=== PATIENT | male | born 1955 | race Caucasian/White ===

== ENCOUNTER 2017-10-01 21:00 | Inpatient (IN) | payer BC ==
[2017-10-01 21:58] LABS: ABSOLUTE BASOPHILS # (AUTO) 0.1 10^3/uL (0.0-0.2); ABSOLUTE EOSINOPHILS # (AUTO) 0.1 10^3/uL (0.0-0.6); ABSOLUTE LYMPHOCYTES (AUTO) 2.4 10^3/uL (0.5-4.7); ABSOLUTE MONOCYTES (AUTO) 0.6 10^3/uL (0.1-1.4); ABSOLUTE NEUT (AUTO) 3.8 10^3/uL (1.7-8.2); BASOPHILS % (AUTO) 1.2 % (0-2); EOSINOPHILS % (AUTO) 1.9 % (0-6); HEMATOCRIT 40.4 % (37.9-51.0); LYMPHOCYTES % (AUTO) 34.1 % (13-45); MEAN CORPUSCULAR HEMOGLOBIN 34.9 pg (27.0-33.4); MEAN CORPUSCULAR HGB CONC 34.6 g/dL (32.0-36.0); MEAN CORPUSCULAR VOLUME 101 fl (80-97); MONOCYTES % (AUTO) 8.5 % (3-13); PLATELET COUNT 201 10^3/uL (150-450); RED CELL DISTRIBUTION WIDTH 13.8 % (11.5-14.0); SEGMENTED NEUTROPHILS % (AUTO) 54.3 % (42-78); TOTAL CELLS COUNTED % (AUTO) 100 %
--- NOTE | 2017-10-01 21:59 | ER Document Report ---
ED General - General Chief Complaint: Chest Pain Stated Complaint: CHEST PAIN Time Seen by Provider: 10/01/17 21:58 Notes: Patient is 61-year-old male who presents with complaint of chest pain. Chest pain is substernal does radiate some to the back. This started around 7:30 PM. Patient then started to have panic attacks become very anxious. He then started to act confused. Family says is under several times in the past when he starts panicking or confused. does admit that he had just 2 drinks today. She says she that he drinks sometimes. No recent fevers or infections. He does have a history of coronary disease. Does have previous history of stent. No vomiting. No diarrhea. No other complaints at this time. He does have previous history of strokes as well. No lasting neurologic deficits from his previous strokes. TRAVEL OUTSIDE OF THE [place] IN LAST 30 DAYS: No - Related Data Allergies/Adverse Reactions: No Known Allergies Allergy (Unverified 09/17/12 00:21) Past Medical History - Social History Smoking Status: Smoker,Current Status Unk Chew tobacco use (# tins/day): No Frequency of alcohol use: Social Drug Abuse: None Family History: Reviewed & Not Pertinent Patient has suicidal ideation: No Patient has homicidal ideation: No - Past Medical History Cardiac Medical History: Reports: Hx Congestive Heart Failure, Hx Coronary Artery Disease, Hx Heart Attack, Hx Hypercholesterolemia, Hx Hypertension Neurological Medical History: Reports: Hx Cerebrovascular Accident Renal/ Medical History: Reports: Hx Kidney Stones. Denies: Hx Peritoneal Dialysis Musculoskeltal Medical History: Reports Hx Fibromyalgia Past Surgical History: Reports: Hx Cardiac Catheterization - stents placed, Hx Cholecystectomy - Immunizations Hx Diphtheria, Pertussis, Tetanus Vaccination: No Review of Systems - Review of Systems -: Yes ROS unobtainable due to patient's medical condition - Review of systems limited because patient is altered. Physical Exam - Vital signs Vitals: Temp Resp Pulse Ox 98.7 F 16 99 10/01/17 21:12 10/01/17 21:12 10/01/17 21:12 - Notes Notes: General Appearance: Patient initially is staring off and base but still somewhat interactive with family. Patient then starts answering questions but does not give appropriate answers to questions. Patient initially would not move his extremities but then the middle exam starts moving all 4 extremities spontaneously and grabbing at his blanket and pulling it up. Vitals: reviewed, See vital signs table. Head: no swelling or tenderness to the head Eyes: PERRL, EOMI, Conjuctiva clear Mouth: No decreasd moisture Throat: No tonsillar inflammation, No airway obstruction, No lymphadenopathy Neck: Supple, no neck tenderness, No thyromegaly Lungs: No wheezing, No rales, No rhonci, No accessory muscle use, good air exchange bilaterally. Heart: Normal rate, Regular rythm, No murmur, no rub Abdomen: Normal BS, soft, No rigidity, No abdominal tenderness, No guarding, no rebound, no abdominal masses, no organomegaly Extremities: strength 5/5 in all extremities, good pulses in all extremities, no swelling or tenderness in the extremities, no edema. Skin: warm, dry, appropriate color, no rash Neuro: Patient is able move all 4 extremities on his own. It is hard to individually test strength as patient does not follow commands well. Patient's cranial nerves II through XII are intact except for speech is just slightly garbled. He has symmetric facial movements. Did not test patient's gait at this time due to patient's altered mental status and difficulty following instructions. When patient moves his extremities on his own he appears to move the appropriately without signs of discoordination. Course - Re-evaluation Re-evalutation: 10/01/17 22:30 Patient has ongoing chest pain. When I first evaluate the patient he would not move any of his extremities he would not respond but he would look around. He suddenly start mumbling his words. But that he was also moving all extremities on his own. As I was confused. His says that he has done this several times in the past when he was sick and did not feel well. They said that he does not have a form of panic. He also has a history of strokes. says all symptoms initially started tonight with chest pain. He is currently 3 hours since the onset of symptoms. Being that his neuro exam changed frequently during the time was in the room and the fact that he has had similar symptoms in the past related to almost anxiety or panic attacks I do not think is an appropriate candidate for TPA. I talked to the and family about this and they agreeable to this. I will do CTA of his chest to rule out dissection being that he had some pain rating to the back and some neurologic symptoms. Initial troponin is negative. Initial EKG is normal appearing. 10/02/17 00:28 On reevaluation patient is sleeping but easily arousable. Moving all extremities without difficulty. He still has some confusion. He thinks his is his sister. He is no longer anxious or panicked appearing. His speech is more appropriate. Facial movements are symmetric and equal. Patient's liver enzymes are elevated. I suspect that the patient drinks alcohol a lot more than what family is leaving on. I informed the of this and she agrees that he probably does drink more alcohol than what initially presented. I will order ammonia level. He is acidotic. Last time he is acidotic was in 2015 was admitted for similar presentation. At that time he was also mentioned that he drink alcohol on a regular basis. 10/02/17 01:51 Patient's mental status is completely back to normal now. He is answering all questions appropriately and is very clearheaded. I suspect that his medical problems tonight are related to alcohol use. The more more talk to him and his the more seems that he drinks more alcohol than was initially told. He does have elevated lipase. He has a lot of pain to palpation of his epigastric region. CT scan does not show evidence of aortic dissection. Suspect probably has pancreatitis. Does have some liver enzyme elevation. He is already had a cholecystectomy. I do not think ultrasound is required being that he has previous cholecystectomy and does not have hyperbilirubinemia. His troponin is negative. I informed him that he needs to avoid eating any food and that would give him IV hydration and that he needs to be admitted for treatment of appears to be pancreatitis which I think most likely is because of his chest pain. I did talk to the hospitalist, Dr. Russell, who agrees to admit the patient. Dictation of this chart was performed using voice recognition software; therefore, there may be some unintended grammatical errors. - Vital Signs Vital signs: Temp Pulse Resp BP Pulse Ox 98.7 F 16 111/72 93 10/01/17 21:12 10/02/17 00:12 10/01/17 23:18 10/02/17 00:12 - Laboratory Result Diagrams: 10/01/17 21:18 10/01/17 21:18 Laboratory results interpreted by me: 10/01/17 10/01/17 10/02/17 21:18 21:18 00:35 RBC 4.00 L MCV 101 H MCH 34.9 H Sodium 135.6 L Potassium 3.5 L Carbon Dioxide 16 L Glucose 115 H AST 123 H ALT 136 H Creatine Kinase 259 H Lipase 457.2 H - EKG Interpretation by Me Additional EKG results interpreted by me: 10/01/17 21:58 EKG is reviewed and interpreted by me. EKG shows sinus rhythm with rate [address] segment elevation or depression. No ischemic T-wave inversions. VA interval, QRS duration, QTc intervals are within normal range. No old EKG available for comparison. Discharge - Discharge Clinical Impression: Chest pain Qualifiers: Chest pain type: unspecified Qualified Code(s): R07.9 - Chest pain, unspecified Pancreatitis Qualifiers: Chronicity: acute Pancreatitis type: alcohol induced Acute pancreatitis complication: no infection or necrosis Qualified Code(s): K85.20 - Alcohol induced acute pancreatitis without necrosis or infection Alcohol intoxication Qualifiers: Complication of substance-induced condition: uncomplicated Qualified Code(s): F10.920 - Alcohol use, unspecified with intoxication, uncomplicated Condition: Stable Disposition: ADMITTED INPATIENT Admitting Provider: Hospitalist Unit Admitted: Telemetry Referrals: ALEJANDRO HOLLAND MD [Primary Care Provider] - Follow up as needed
[2017-10-01 22:01] LABS: ALANINE AMINOTRANSFERASE 136 U/L (21-72); ALBUMIN 4.4 g/dL (3.5-5.0); ALKALINE PHOSPHATASE 89 U/L (38-126); ANION GAP 18 (5-19); ASPARTATE AMINO TRANSFERASE 123 U/L (17-59); BILIRUBIN,DIRECT 0.4 mg/dL (0.0-0.4); BILIRUBIN,TOTAL 0.7 mg/dL (0.2-1.3); BLOOD UREA NITROGEN 14 mg/dL (7-20); CARBON DIOXIDE 16 mmol/L (22-30); CHLORIDE 102 mmol/L (98-107); CREATINE KINASE 259 U/L (55-170); GLUCOSE 115 mg/dL (75-110); POTASSIUM 3.5 mmol/L (3.6-5.0); SODIUM 135.6 mmol/L (137-145); TOTAL PROTEIN 7.3 g/dL (6.3-8.2)
[2017-10-01 22:13] LABS: CREATINE KINASE MB 1.78 ng/mL (<4.55); TROPONIN I < 0.012 ng/mL
--- NOTE | 2017-10-01 22:16 | RADIOLOGY REPORT (SQ) ---
EXAM DESCRIPTION: CHEST SINGLE VIEW COMPLETED DATE/TIME: 10/01/2017 10:08 pm REASON FOR STUDY: cp COMPARISON: 12/28/2014 NUMBER OF VIEWS: One view. TECHNIQUE: Single frontal radiographic view of the chest acquired. LIMITATIONS: None. FINDINGS: LUNGS AND PLEURA: No opacities, masses or pneumothorax. No pleural effusion. MEDIASTINUM AND HILAR STRUCTURES: No masses. Contour normal. HEART AND VASCULAR STRUCTURES: Heart enlarged without failure. Normal vasculature. BONES: No acute findings. HARDWARE: None in the chest. OTHER: No other significant finding. IMPRESSION: HEART ENLARGED WITHOUT FAILURE. NO OTHER SIGNIFICANT RADIOGRAPHIC FINDING IN THE CHEST. TECHNICAL DOCUMENTATION: JOB ID: [id number] [employer]- All Rights Reserved Reading location - IP/workstation name: [email or web address]
[2017-10-01] MEDS ORDERED: NITROGLYCERIN 2% OINTMENT 1 GM PACKET TP ONE (23:13)
--- NOTE | 2017-10-02 00:16 | RADIOLOGY REPORT (SQ) ---
EXAM DESCRIPTION: CT HEAD WITHOUT CLINICAL HISTORY: 61 years Male, confusion COMPARISON: None. TECHNIQUE: No contrast. Coronal and sagittal reformat. This exam was performed according to our departmental dose-optimization program, which includes automated exposure control, adjustment of the mA and/or kV according to patient size and/or use of iterative reconstruction technique. FINDINGS: No hemorrhage or infarct. No mass, mass effect, or midline shift. Brain and extra-axial structures appear intact. IMPRESSION: Normal CT of the head.
[2017-10-02] MEDS ORDERED: NORMAL SALINE 1000 ML 1,000 ML IV ONE (00:23)
[2017-10-02 00:51] LABS: VENOUS BLOOD BASE EXCESS -3.4 mmol/L; VENOUS BLOOD HCO3 20.8 mmol/L (20-32); VENOUS BLOOD PCO2 35.2 mmHg (35-63); VENOUS BLOOD PH 7.39 (7.30-7.42)
--- NOTE | 2017-10-02 01:08 | RADIOLOGY REPORT (SQ) ---
EXAM DESCRIPTION: CTA CHEST CLINICAL HISTORY: 61 years Male, rule out aortic dissection COMPARISON: 7..20.15 TECHNIQUE: IV contrast. Multiplanar reformat. This exam was performed according to our departmental dose-optimization program, which includes automated exposure control, adjustment of the mA and/or kV according to patient size and/or use of iterative reconstruction technique. FINDINGS: CTA of the thoracic and abdominal aorta appears unremarkable. Small atherosclerotic plaque. No dissection. No aneurysm. No significant stenosis or occlusion. Moderate coronary arterial calcification stenting. Moderate colonic diverticulosis.Inferior neck, axillae, mediastinum, lungs, airway, heart, liver, gallbladder, pancreas, spleen, adrenals, renal system, gastrointestinal tract, pelvic organs, lymphatics, vasculature, and musculoskeleton appear otherwise unremarkable. IMPRESSION: Intact CTA appearance of the thoracic and abdominal aorta.
[2017-10-02] MEDS ORDERED: ACETAMINOPHEN 325 MG TABLET PO PRN (02:13)
[2017-10-02] MEDS ORDERED: PROMETHAZINE HCL INJ 25 MG/1 ML VIAL IV PRN (02:13)
[2017-10-02] MEDS ORDERED: ALBUTEROL SULFATE 0.083% NEB 2.5 MG/3 ML AMPUL NEB PRN (02:13)
[2017-10-02] MEDS ORDERED: NORMAL SALINE 1000 ML 1,000 ML IV PRN (02:13)
[2017-10-02] MEDS ORDERED: LORAZEPAM INJ 2 MG/1 ML VIAL IV ONE (03:13)
[2017-10-02] MEDS: LORAZEPAM INJ 2 MG/1 ML VIAL IV PRN ×2 (03:30→21:14)
[2017-10-02] MEDS ORDERED: MULTIVITAMIN TABLET PO ONE (03:30)
[2017-10-02] MEDS ORDERED: FOLIC ACID 1 MG TABLET PO ONE (03:30)
[2017-10-02] MEDS ORDERED: THIAMINE HCL 100 MG TABLET PO ONE (04:00)
[2017-10-02 04:58] LABS: APPEARANCE,URINE CLEAR; BILIRUBIN,URINE NEGATIVE (NEGATIVE); COLOR,URINE STRAW; GLUCOSE, URINE NEGATIVE (NEGATIVE); KETONES,URINE NEGATIVE (NEGATIVE); LEUKOCYTE ESTERASE,URINE NEGATIVE (NEGATIVE); NITRITE,URINE NEGATIVE (NEGATIVE); PROTEIN,URINE NEGATIVE (NEGATIVE); URINE SPECIFIC GRAVITY 1.008; UROBILINOGEN,URINE NEGATIVE mg/dL (<2.0)
--- NOTE | 2017-10-02 05:03 | PDOC H&P ---
History of Present Illness Admission Date/PCP: ALEJANDRO HOLLAND MD Patient complains of: Severe chest pain and unresponsiveness around 7:30 PM per . 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 Most of the history was obtained from his at bedside. According to his , the patient came back from work last night and drank 2 glasses of gin on tonic on an empty stomach. He had not had any food intake for the last 24 hours. He started complaining of severe epigastric/chest pain so he took 2 sublingual nitros with some improvement in his symptoms. He went to the bathroom but he was unable to void. Afterwards, as his was trying to help him settle down on the couch he reportedly became unresponsive so she called 911. EMS told her to give him one sublingual nitro and 4 baby aspirins. The episode lasted about 1-2 minutes after which the patient seemed to be having a panic attack. He was taking deep breaths and started panicking when he chest pain was gettig worse. The patient complained of nausea and he vomited once while in the ED. The vomitus was clear, nonbloody. There was no report of any fever but he was having some chills and he also complained of back pain and periumbilical/right upper quadrant pain which he described as spasm. He had diarrhea for the last few days. He has been having 4-5 bowel movements a day of liquid, nonbloody stool. He denied any sick contacts or any change in food ingested or antibiotic use. He also complained of dysuria and increased urinary frequency. He apparently has more pronounced left hemiparesis whenever he is tired. He has intermittent leg swelling for the last 5-6 months with increased bloating. His makes sure that he is compliant with his medications. According to his , the patient was very confused throughout the night. And while in the ED, he was disoriented and did not know where he was. He also did not recognize his or children. He is currently back to his baseline and able to understand and follow simple commands. He denied any delirium tremens or any alcohol withdrawal seizures. He is currently feeling tremulous. In the ED, his temperature was 98.7, heart rate 60, respiratory rate 16, blood pressure 119/78 with oxygen saturation of 91% on room air. His WBC was 7.0 and his hemoglobin was 14.0. His blood glucose was 115 with elevated liver enzymes and his alcohol level was 270. His lipase was 457. His initial troponin was negative. A CXR was done which showed cardiomegaly. He also had CAT scan head , CAT scan angiogram of the chest/abdomen/pelvis since there was concern for possible aortic dissection but all imaging studies did not shhow any acute findings. A 1/2 inch of 2% Nitropaste was placed and he received 1 L of normal saline with some improvement in his epigastric/chest pain. Past Medical History Medical History: Other - According to the patient and his and based on previous records. Cardiac Medical History: Reports: Congestive Heart Failure, Coronary Artery Disease - x1 stent in 2007. last cardiac cath was done in 2010 per ., Myocardial Infarction - x3, Hyperlipidema, Hypertension, Other - cardiac arrest. Neurological Medical History: Reports: Ischemic CVA Musculoskeltal Medical History: Reports: Fibromyalgia Past Surgical History Past Surgical History: Reports: Cardiac Catheterization - stent placed, Cholecystectomy Social History Smoking Status: Former Smoker Cigarettes Packs Per Day: 0 - Smoked more than a pack a day for 20 years he quit in 2006. Frequency of Alcohol Use: Heavy - Few beers a day for many years. He sometimes drinks hard liquor. Hx Recreational Drug Use: No - Advance Directive Resuscitation Status: Full Code Family History Family History: Reviewed & Not Pertinent Parental Family History Reviewed: Yes - Father: esophageal cancer, mother: Breast cancer and leukemia, diabetes. Children Family History Reviewed: No Sibling(s) Family History Reviewed.: Yes Medication/Allergy Home Medications: Aspirin [Aspirin 81 mg Chewable Tablet] 81 mg PO DAILY 12/29/14 Atorvastatin Calcium [Lipitor 10 mg Tablet] mg PO QHS 12/29/14 Clopidogrel Bisulfate [Plavix 75 mg Tablet] mg PO DAILY 12/29/14 Folic Acid [Folvite 1 mg Tablet] 1 mg PO DAILY #90 tablet 12/29/14 Linaclotide [Linzess] mcg PO DAILY 12/29/14 Multivitamin [Tab-A-Chris (Multiple Vitamin) Tablet] 1 tab PO DAILY #30 tablet Nebivolol HCl [Bystolic 5 mg Tablet] 5 mg PO BID 12/29/14 Nitroglycerin 0.4 mg SL Q5MP PRN 30 Days tab.subl 12/29/14 [place]-3 Fatty Acids/Fish Oil [Fish Oil 1,000 mg Capsule] 1 each PO BID 12/29/14 Pregabalin [Lyrica 100 mg Capsule] 100 mg PO BID 12/29/14 Spironolactone [Aldactone 25 mg Tablet] 25 mg PO DAILY 12/29/14 Thiamine HCl [Thiamine 100 mg Tablet] 100 mg PO DAILY #90 tablet 12/29/14 Allergies/Adverse Reactions: lisinopril Adverse Reaction (Verified 10/02/17 04:23) Syncope Review of Systems ROS unobtainable: Other - Pertinent positives and negatives as detailed in the HPI. Physical Exam Vital Signs: Temp Pulse Resp BP Pulse Ox 98.7 F 16 111/72 93 10/01/17 21:12 10/02/17 00:12 10/01/17:10/02/17 00:12 General appearance: PRESENT: no acute distress, obese Head exam: PRESENT: atraumatic, normocephalic Eye exam: PRESENT: PERRLA. ABSENT: nystagmus Mouth exam: PRESENT: moist, neck supple Neck exam: PRESENT: full ROM. ABSENT: JVD Respiratory exam: PRESENT: decreased breath sounds. ABSENT: rales, rhonchi, wheezes Cardiovascular exam: PRESENT: RRR, +S1, +S2 Pulses: PRESENT: normal dorsalis pedis pul GI/Abdominal exam: PRESENT: distended, normal bowel sounds, soft, tenderness - periumbilical. ABSENT: rebound Rectal exam: PRESENT: deferred Extremities exam: PRESENT: pedal edema - some right foot swelling. Neurological exam: PRESENT: alert, altered, awake, oriented to person, oriented to place, oriented to time, oriented to situation, CN II-XII grossly intact - except CNVIII., motor sensory deficit - chronic residual left-sided weakness and decreased sensation on the left. Results Laboratory Results: 10/01/17 21:10/01/17 21:10/01/17 10/01/17 10/02/17:: 00:35 WBC 7.0 RBC 4.00 L Hgb 14.0 Hct 40.4 MCV 101 H MCH 34.9 H MCHC 34.6 RDW 13.8 Plt Count 201 Seg Neutrophils % 54.3 Lymphocytes % 34.1 Monocytes % 8.5 Eosinophils % 1.9 Basophils % 1.2 Absolute Neutrophils 3.8 Absolute Lymphocytes 2.4 Absolute Monocytes 0.6 Absolute Eosinophils 0.1 Absolute Basophils 0.1 VBG pH VBG pCO2 VBG HCO3 VBG Base Excess Sodium 135.6 L Potassium 3.5 L Chloride 102 Carbon Dioxide 16 L Anion Gap 18 BUN 14 Creatinine 0.75 Est GFR ( Amer) > 60 Est GFR (Non-Af Amer) > 60 Glucose 115 H Calcium 9.0 Total Bilirubin 0.7 AST 123 H ALT 136 H Alkaline Phosphatase 89 Ammonia 22.3 Total Protein 7.3 Albumin 4.4 Lipase 10/02/17 10/02/17 00:35 00:35 WBC RBC Hgb Hct MCV MCH MCHC RDW Plt Count Seg Neutrophils % Lymphocytes % Monocytes % Eosinophils % Basophils % Absolute Neutrophils Absolute Lymphocytes Absolute Monocytes Absolute Eosinophils Absolute Basophils VBG pH 7.39 VBG pCO2 35.2 VBG HCO3 20.8 VBG Base Excess -3.4 Sodium Potassium Chloride Carbon Dioxide Anion Gap BUN Creatinine Est GFR ( Amer) Est GFR (Non-Af Amer) Glucose Calcium Total Bilirubin AST ALT Alkaline Phosphatase Ammonia Total Protein Albumin Lipase 457.2 H 10/01/17 10/01/17 21:18 21:18 Creatine Kinase 259 H CK-MB (CK-2) 1.78 Troponin I < 0.012 Impressions: Chest X-Ray 10/01/17 21:49 IMPRESSION: HEART ENLARGED WITHOUT FAILURE. NO OTHER SIGNIFICANT RADIOGRAPHIC FINDING IN THE CHEST. Abdomen/Pelvis CTA 10/01/17 22:28 IMPRESSION: Intact CTA appearance of the thoracic and abdominal aorta. Chest/Abdomen CTA 10/01/17 22:28 IMPRESSION: Intact CTA appearance of the thoracic and abdominal aorta. Head CT 10/01/17 22:28 IMPRESSION: Normal CT of the head. Assessment & Plan - Diagnosis (1) Chest pain Qualifiers: Chest pain type: other chest pain Qualified Code(s): R07.89 - Other chest pain; R07.8 - Other chest pain Is this a current diagnosis for this admission?: Yes Plan: and/or epigastric pain secondary to acute alcoholic acute pancreatitis/ hepatitis and possible gastritis/PUD. The patient has history of cholecystectomy. Will continue aggressive IV hydration and start PPI, antiemetics and pain medications as needed. Will check an abdominal ultrasound , CMP and serial lipase levels in addition to hemoccult stool. Will continue to cycle cardiac enzymes and check an echocardiogram. Of note, the patient is unable to have a nuclear stress test since he loses consciousness. His last heart cath was done in 2010 with no new stents placed since the last time he had a cardiac cath in 2007. He may need an EGD pending abdominal ultrasound findings. Holding aspirin and Plavix for now. The patient was strongly advised to stop drinking. (2) Syncope and collapse Plan: possibly secondary to orthostasis (poor oral intake). Will continue to cycle cardiac enzymes and follow-up echocardiogram. His CAT scan of the head and CAT scans angiogram of the abdomen and pelvis were all within normal limits. (3) Acute encephalopathy Is this a current diagnosis for this admission?: Yes Plan: possilby due to alcohol intoxication. His head CAT scan was negative. Will check UA, TSH, B12 and ammonia levels. (4) Acute alcoholic pancreatitis Is this a current diagnosis for this admission?: Yes Plan: We will continue management as detailed above. He is post cholecystectomy. Will check triglyceride level and follow up abdominal ultrasound. (5) CAD (coronary artery disease) Qualifiers: Coronary Disease-Associated Artery/Lesion type: [place] artery [place] vs. transplanted heart: [place] heart Associated angina: without angina Qualified Code(s): I25.10 - Atherosclerotic heart disease of [place] coronary artery without angina pectoris Is this a current diagnosis for this admission?: Yes Plan: Holding aspirin and Plavix for now. Will also hold Lipitor given increased liver enzymes. Will resume nebivolol. (6) Alcohol abuse Is this a current diagnosis for this admission?: Yes Plan: Possibly dependency. Will start thiamine, folic acid and multivitamins and monitor for any alcohol withdrawal. IV Ativan as needed. - Time Time Spent: Greater than 70 Minutes - Inpatient Certification Based on my medical assessment, after consideration of the patient's comorbidities, presenting symptoms, or acuity I expect that the services needed warrant INPATIENT care.: Yes I certify that my determination is in accordance with my understanding of Medicare's requirements for reasonable and necessary INPATIENT services [42 CFR 412.3e].: Yes
[2017-10-02] MEDS: HEPARIN SOD (PORCINE) 5,000 UNIT/ML 1 ML SYRINGE SUBCUT SCH ×3 (06:00→21:13)
[2017-10-02] MEDS: LANSOPRAZOLE 30 MG TAB.RAP.DR PO SCH (06:00)
--- NOTE | 2017-10-02 07:48 | EKG REPORT ---
SEVERITY:- ABNORMAL ECG - SINUS RHYTHM PROBABLE INFERIOR INFARCT, AGE INDETERMINATE : Confirmed by: Taran Fish MD 02-Oct-2017 07:47:24
[2017-10-02] MEDS: HYDROMORPHONE HCL INJ/PF 2 MG/ML AMPULE IV PRN ×2 (08:02→18:47)
[2017-10-02 09:02] LABS: ALANINE AMINOTRANSFERASE 122 U/L (21-72); ALKALINE PHOSPHATASE 83 U/L (38-126); ASPARTATE AMINO TRANSFERASE 106 U/L (17-59); BILIRUBIN,DIRECT 0.5 mg/dL (0.0-0.4); BILIRUBIN,TOTAL 0.6 mg/dL (0.2-1.3)
[2017-10-02] MEDS: THIAMINE HCL 100 MG TABLET PO SCH (10:02)
[2017-10-02] MEDS: NEBIVOLOL HCL 5 MG TABLET PO SCH ×2 (10:03→18:45)
[2017-10-02] MEDS: FOLIC ACID 1 MG TABLET PO SCH (10:03)
[2017-10-02] MEDS: MULTIVITAMIN TABLET PO SCH (10:15)
--- NOTE | 2017-10-02 11:35 | PDOC PROGRESS REPORT ---
Subjective Progress Note for:: 10/02/17 Subjective:: The patient is resting in his bed. He states that he is feeling much better than he was when he was admitted last night. He has had no fever or shaking chills. He states his chest pain has totally resolved. He continues to have some pain across his upper abdomen especially in the right upper and left upper quadrants. The pain radiates to his back somewhat. He states his nausea and vomiting has totally stopped. He tolerated a full liquid diet this morning for breakfast. He states that he was having diarrhea yesterday but he has had none yet today. He has no voiding complaints. Reason For Visit: ALTERED MENTAL STATUS/ACUTE ALCOHOLIC PANCREATITIS Physical Exam Vital Signs: Temp Pulse Resp BP Pulse Ox 98.7 F 16 146/87 H 95 10/01/17 21:12 10/02/17 09:31 10/02/17 09:31 10/02/17 09:31 Intake & Output 10/01/17 10/02/17 10/03/17 06:59 06:59 06:59 Output Total 500 Balance -500 Weight 98.9 kg General appearance: PRESENT: no acute distress, obese, well-developed, well- nourished Head exam: PRESENT: atraumatic, normocephalic Eye exam: PRESENT: conjunctiva pink, EOMI, PERRLA. ABSENT: scleral icterus Mouth exam: PRESENT: moist, tongue midline Respiratory exam: PRESENT: clear to auscultation oren, other - He is somewhat diminished in the lower bases bilaterally. ABSENT: rales, rhonchi, wheezes Cardiovascular exam: PRESENT: RRR. ABSENT: diastolic murmur, rubs, systolic murmur GI/Abdominal exam: PRESENT: firm, guarding - He is tender to palpation with mild guarding in the right upper quadrant. Also tender in the left upper quadrant. Lower abdomen is nontender., normal bowel sounds, organolmegaly - I could not assess for organomegaly due to the patient's body habitus, tenderness. ABSENT: rebound, rigid Rectal exam: PRESENT: deferred Extremities exam: PRESENT: full ROM. ABSENT: calf tenderness, clubbing, pedal edema Musculoskeletal exam: PRESENT: ambulatory Neurological exam: PRESENT: alert, awake, oriented to person, oriented to place , oriented to time, oriented to situation, CN II-XII grossly intact. ABSENT: motor sensory deficit Skin exam: PRESENT: dry, intact, warm. ABSENT: cyanosis, rash Results Laboratory Results: 10/02/17 10/02/17 10/02/17 04:45 06:10 06:10 Total Bilirubin AST ALT Alkaline Phosphatase Ammonia 18.4 Total Protein Albumin Vitamin B12 293.0 Urine Color STRAW Urine Appearance CLEAR Urine pH 5.0 Ur Specific [place] 1.008 Urine Protein NEGATIVE Urine Glucose (UA) NEGATIVE Urine Ketones NEGATIVE Urine Blood NEGATIVE Urine Nitrite NEGATIVE Ur Leukocyte Esterase NEGATIVE Urine WBC (Auto) 0 Urine RBC (Auto) 0 10/02/17 06:10 Total Bilirubin 0.6 AST 106 H ALT 122 H Alkaline Phosphatase 83 Ammonia Total Protein 7.0 Albumin 4.0 Vitamin B12 Urine Color Urine Appearance Urine pH Ur Specific [place] Urine Protein Urine Glucose (UA) Urine Ketones Urine Blood Urine Nitrite Ur Leukocyte Esterase Urine WBC (Auto) Urine RBC (Auto) 10/02/17 08:05 Troponin I < 0.012 Impressions: Chest X-Ray 10/01/17 21:49 IMPRESSION: HEART ENLARGED WITHOUT FAILURE. NO OTHER SIGNIFICANT RADIOGRAPHIC FINDING IN THE CHEST. Abdomen/Pelvis CTA 10/01/17 22:28 IMPRESSION: Intact CTA appearance of the thoracic and abdominal aorta. Chest/Abdomen CTA 10/01/17 22:28 IMPRESSION: Intact CTA appearance of the thoracic and abdominal aorta. Head CT 10/01/17 22:28 IMPRESSION: Normal CT of the head. Assessment & Plan - Diagnosis (1) Chest pain Qualifiers: Chest pain type: unspecified Qualified Code(s): R07.9 - Chest pain, unspecified Is this a current diagnosis for this admission?: Yes Plan: I believe the patient is having gastrointestinal chest pain. His serial troponins have remained negative. A 2D echocardiogram has been ordered just to remain on the safe side. Patient has abdominal pain and elevated liver function test. His chest pain is totally resolved with improvement of his abdominal symptoms. We will follow-up with all of these results but I do not believe that there is a cardiac source to his chest pain (2) Syncope and collapse Is this a current diagnosis for this admission?: Yes Plan: Possibly due to volume depletion from intractable nausea and vomiting as well as diarrhea. He has had no further episodes since he came to the hospital (3) Encephalopathy Is this a current diagnosis for this admission?: Yes Plan: Reports were that the patient was initially somewhat confused. This may have been due to hypotension. Ammonia level is normal so there is no hepatic encephalopathy. At the time of my visit his encephalopathy has resolved (4) Elevated liver function tests Is this a current diagnosis for this admission?: Yes Plan: This was diagnosed as acute pancreatitis earlier. His lipase was only in the 400s. He really is not having that much pain in the left upper quadrant. Imaging studies did not reveal an inflamed pancreas. I do not believe he had pancreatitis. The patient could have had a viral gastroenteritis versus an alcoholic hepatitis from his alcohol use. We will repeat liver function test in the morning. He likely will require GI workup. If he improves this can be done as an outpatient. If he does not improve we could pursue inpatient workup if we have GI available. (5) Coronary artery disease Is this a current diagnosis for this admission?: Yes Plan: He will continue his home regimen. I do not believe his chest pain was cardiac in nature. (6) Heavy alcohol use Is this a current diagnosis for this admission?: Yes Plan: The patient states that he drinks fairly regularly and did have a drink with vodka in the last night. He states that he is going to have no problem not drinking. Absolute abstinence would be recommended in the setting of his elevated liver function tests. (7) Hyponatremia Is this a current diagnosis for this admission?: Yes Plan: This was quite mild. Possibly due to volume depletion. He will have a sodium level drawn in the morning. - Time Time Spent with patient: 25-34 minutes - Inpatient Certification Medical Necessity: Other - Inpatient hospitalization remains necessary. I had like to watch the patient in the hospital overnight and make sure that his echocardiogram has no new changes and his diet can be advanced. The patient likely will require GI workup. If his liver function tests continue to trend downward she can likely be discharged home with outpatient follow-up within the next 24-48 hours.
[2017-10-03] MEDS: LANSOPRAZOLE 30 MG TAB.RAP.DR PO SCH (05:31)
[2017-10-03] MEDS: HEPARIN SOD (PORCINE) 5,000 UNIT/ML 1 ML SYRINGE SUBCUT SCH ×2 (05:31→13:52)
--- NOTE | 2017-10-03 06:08 | RADIOLOGY REPORT (SQ) ---
EXAM DESCRIPTION: U/S ABDOMEN LTD W/DOPPLER CLINICAL HISTORY: 61 years, Male, acute hepatitis/? ascites. COMPARISON: None. LIMITATIONS: None. FINDINGS: Cholecystectomy. No biliary ductal dilation. 0.4 cm diameter common bile duct. Moderate hepatic steatosis. Macrolobulated 11 cm right kidney, nonspecific. Partially obscured pancreas, vasculature, and no ascites are otherwise unremarkable. IMPRESSION: No acute findings. Moderate hepatic steatosis. Cholecystectomy.
[2017-10-03 07:50] LABS: HEMATOCRIT 41.2 % (37.9-51.0); HEMOGLOBIN 14.1 g/dL (13.5-17.0); MEAN CORPUSCULAR HEMOGLOBIN 34.9 pg (27.0-33.4); MEAN CORPUSCULAR HGB CONC 34.3 g/dL (32.0-36.0); MEAN CORPUSCULAR VOLUME 102 fl (80-97); PLATELET COUNT 182 10^3/uL (150-450); RED BLOOD COUNT 4.04 10^6/uL (4.35-5.55); RED CELL DISTRIBUTION WIDTH 13.9 % (11.5-14.0); WHITE BLOOD COUNT 5.4 10^3/uL (4.0-10.5)
[2017-10-03] MEDS: LORAZEPAM INJ 2 MG/1 ML VIAL IV PRN (07:54)
[2017-10-03 08:08] LABS: ANION GAP 11 (5-19); BLOOD UREA NITROGEN 10 mg/dL (7-20); CALCIUM 9.2 mg/dL (8.4-10.2); CARBON DIOXIDE 22 mmol/L (22-30); CHLORIDE 108 mmol/L (98-107); CHOLESTEROL 256.62 mg/dL (0-200); GLUCOSE 118 mg/dL (75-110); LIPASE 116.4 U/L (23-300); SODIUM 140.8 mmol/L (137-145); TRIGLYCERIDES 420 mg/dL (<150)
[2017-10-03 08:19] LABS: DIRECT LDL 135 mg/dL (<100)
[2017-10-03] MEDS: FOLIC ACID 1 MG TABLET PO SCH (09:58)
[2017-10-03] MEDS: MULTIVITAMIN TABLET PO SCH (09:58)
[2017-10-03] MEDS: NEBIVOLOL HCL 5 MG TABLET PO SCH (09:58)
[2017-10-03] MEDS: THIAMINE HCL 100 MG TABLET PO SCH (09:58)
[2017-10-03 17:12] VITALS: BP 136/78
--- NOTE | 2017-10-03 17:20 | PDOC DISCHARGE SUMMARY ---
General - Admit/Disc Date/PCP Admission Date/Primary Care Provider: 10/02/17 02:58 ALEJANDRO HOLLAND MD Discharge Date: 10/03/17 - Discharge Diagnosis (1) Chest pain Is this a current diagnosis for this admission?: Yes Summary: Gastrointestinal chest pain. His pain has totally resolved. Serial troponins remained negative. EKG was unremarkable. He did have a 2D echocardiogram. The results are not back as of the time of this dictation. His primary care physician can request the results. (2) Syncope and collapse Is this a current diagnosis for this admission?: Yes Summary: Possibly due to micturition. The patient was trying to void and was unable to and came back into the living room and had a syncopal episode. He also had been drinking at the time making this more likely. He also was having severe pain. He has had no further episodes. (3) Encephalopathy Is this a current diagnosis for this admission?: Yes Summary: Resolved. Likely due to transient hypotension due to severe dehydration (4) Elevated liver function tests Is this a current diagnosis for this admission?: Yes Summary: The patient had elevated liver function test as well as a mildly elevated lipase. Abdominal ultrasound reveals a fatty liver. He will need repeat liver function test when he follows up with his primary care provider. He would likely benefit from a GI evaluation but do not feel like this needs to be done acutely in the hospital as he is so much better. (5) Coronary artery disease Is this a current diagnosis for this admission?: Yes Summary: He will resume his home regimen (6) Heavy alcohol use Is this a current diagnosis for this admission?: Yes Summary: No evidence of alcohol withdrawal. He has been counseled to abstain from alcohol. This is likely the cause of his nausea vomiting and abdominal/chest pain. (7) Hyponatremia Is this a current diagnosis for this admission?: Yes Summary: Resolved with IV fluid hydration. (8) Hypokalemia Is this a current diagnosis for this admission?: Yes Summary: Repleted and resolved - Additional Information Resuscitation Status: Full Code Discharge Diet: Cardiac, Other (Comments) - No alcohol Discharge Activity: Activity As Tolerated, Balance Activity w/Rest, Other Home Medications: Ezetimibe [Zetia 10 mg Tablet] 10 mg PO QHS 10/02/17 Nebivolol HCl [Bystolic] 5 mg PO Q12 10/02/17 Pregabalin [Lyrica] 200 mg PO Q8 10/02/17 History of Present Illness History of Present Illness: JACQUELINE GATES is a 61 year old male who presented to the emergency room with nausea vomiting and chest pain. Hospital Course Hospital Course: The patient is a very pleasant 61-year-old male with a past medical history significant for heavy alcohol use. He has known coronary artery disease status post PCI with stent placed in 2007. 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 The patient presented to the emergency room after having 2 glasses of gin and tonic on an empty stomach at home. He began to complain of severe epigastric/chest pain. He went into the bathroom and tried to void. He subsequently had an episode of unresponsiveness and he was brought to the hospital via EMS. The patient did complain of nausea and vomiting and did vomit while in the emergency room. The patient's alcohol level was 270. Lipase was mildly elevated at 457 and he had elevated transaminases. A chest x- ray was performed which revealed mild cardiomegaly. He had a CT scan of the brain which was unremarkable. He had a CT angiography of the chest abdomen and pelvis as there was concern for a possible aortic dissection but all imaging studies were unremarkable. The patient was hydrated with normal saline and referred for admission. The next day the patient was feeling much better. He had had no further episodes of nausea or vomiting and all of his pain had totally resolved. Serial troponins remained negative. He had an abdominal ultrasound which revealed evidence of fatty liver. His diet was slowly advanced and on the day of discharge he is tolerating a low residue diet without having any further episodes of pain. At this point I believe all his issues are caused by his heavy alcohol use. He states he is going to have no problem not drinking. He has had no evidence of alcohol withdrawal here in the hospital. At this point it is felt that he can safely be discharged home with close outpatient follow-up. His liver function test are still elevated and will need to be followed up to see if they resolve. He may require a GI evaluation. At this point it is felt he will be discharged home today in stable condition. Of note there is a 2D echocardiogram that was performed. Unfortunately it was unable to be read prior to his discharge. Dr. Charles hopefully can get a copy of the report. Again I do not believe this is there is a cardiac source of his chest pain on this occasion. He will be discharged home today in stable condition. Physical Exam Vital Signs: Temp Pulse Resp BP Pulse Ox 97.9 F 61 20 139/83 H 97 10/03/17 11:20 10/03/17 14:00 10/03/17 11:20 10/03/17 11:20 10/03/17 11:20 Intake & Output 10/02/17 10/03/17 10/04/17 06:59 06:59 06:59 Intake Total 2400 Output Total 500 Balance -500 2400 Weight 98.4 kg General appearance: PRESENT: no acute distress, obese, well-developed, well- nourished Head exam: PRESENT: atraumatic, normocephalic Mouth exam: PRESENT: moist, tongue midline Neck exam: ABSENT: carotid bruit, JVD, lymphadenopathy, thyromegaly Respiratory exam: PRESENT: clear to auscultation oren. ABSENT: rales, rhonchi, wheezes Cardiovascular exam: PRESENT: RRR. ABSENT: diastolic murmur, rubs, systolic murmur GI/Abdominal exam: PRESENT: normal bowel sounds, soft. ABSENT: distended, guarding, mass, organolmegaly, rebound, tenderness Rectal exam: PRESENT: deferred Extremities exam: PRESENT: full ROM. ABSENT: calf tenderness, clubbing, pedal edema Musculoskeletal exam: PRESENT: ambulatory Neurological exam: PRESENT: alert, awake, oriented to person, oriented to place , oriented to time, oriented to situation, CN II-XII grossly intact. ABSENT: motor sensory deficit Psychiatric exam: PRESENT: appropriate affect, normal mood. ABSENT: homicidal ideation, suicidal ideation Skin exam: PRESENT: dry, intact, warm. ABSENT: cyanosis, rash Results Laboratory Results: 10/03/17 07:20 10/03/17 07:20 10/03/17 10/03/17 10/03/17 07:20 07:20 12:31 WBC 5.4 RBC 4.04 L Hgb 14.1 Hct 41.2 MCV 102 H MCH 34.9 H MCHC 34.3 RDW 13.9 Plt Count 182 Sodium 140.8 Potassium 4.0 Chloride 108 H Carbon Dioxide 22 Anion Gap 11 BUN 10 Creatinine 0.75 Est GFR ( Amer) > 60 Est GFR (Non-Af Amer) > 60 Glucose 118 H Calcium 9.2 Ammonia < 8.7 L Triglycerides 420 H Cholesterol 256.62 H LDL Cholesterol Direct 135 H VLDL Cholesterol UNABLE TO CALCULATE HDL Cholesterol 71 Lipase 116.4 10/02/17 10/02/17 08:05 15:45 Troponin I < 0.012 < 0.012 Impressions: Chest X-Ray 10/01/17 21:49 IMPRESSION: HEART ENLARGED WITHOUT FAILURE. NO OTHER SIGNIFICANT RADIOGRAPHIC FINDING IN THE CHEST. Abdomen/Pelvis CTA 10/01/17 22:28 IMPRESSION: Intact CTA appearance of the thoracic and abdominal aorta. Chest/Abdomen CTA 10/01/17 22:28 IMPRESSION: Intact CTA appearance of the thoracic and abdominal aorta. Head CT 10/01/17 22:28 IMPRESSION: Normal CT of the head. Abdomen Ultrasound 10/03/17 00:00 IMPRESSION: No acute findings. Moderate hepatic steatosis. Cholecystectomy. Qualifiers - * PATIENT BEING DISCHARGED WITH ANY OF THE FOLLOWING DIAGNOSIS: No Plan Time Spent: Greater than 30 Minutes
--- NOTE | 2017-10-03 18:24 | XCELERA REPORT ---
[address] [address] Transthoracic Echocardiogram Report Name: JACQUELINE GATES Age: 61 yrs Gender: Male : 1955 Patient Status: Inpatient Patient Location: [address] [place] [address] Study Date: 10/03/2017 02:27 PM Height: 68 in Weight: 216 lb BSA: 2.1 m2 Procedure: A complete two-dimensional transthoracic echocardiogram was performed (2D, M-mode, spectral and color flow Doppler). The study was technically adequate with some images being suboptimal in quality. Reason For Study: chest pain Ordering Physician: HARI CAI Performed By: Cora Herrera Interpretation Summary The left ventricular ejection fraction is normal. There is borderline concentric left ventricular hypertrophy. The left ventricle is grossly normal size. Doppler measurements suggest pseudonormalized left ventricular relaxation, which is associated with grade II/IV or mild to moderate diastolic dysfunction Wall motion cannot be accurately commented on, but no definite regional wall motion abnormalities noted. The right ventricle is mildly dilated. The right ventricular systolic function is normal. The left atrium is mildly dilated. The right atrium is mildly dilated. There is a trace amount of mitral regurgitation There is no mitral valve stenosis. No aortic regurgitation is present. There is no aortic valve stenosis There is a mild amount of tricuspid regurgitation There is mild pulmonary hypertension by echo Right ventricular systolic pressure is estimated to be elevated at 30- 40mmHg. The aortic root is not well visualized but is probably normal size. The inferior vena cava was not well visualized There is no pericardial effusion. MMode/2D Measurements & Calculations RVDd: 4.0 cm LVIDd: 4.9 cm FS: 37.6 % Ao root diam: 2.7 cm IVSd: 0.97 cm LVIDs: 3.1 cm EDV(Teich): 113.9 ml LVPWd: 0.98 cm ESV(Teich): 37.0 ml Ao root area: 5.8 cm2 EF(Teich): 67.5 % Doppler Measurements & Calculations MV E max toño: MV dec slope: Ao V2 max: LV V1 max P.3 cm/sec 120.4 cm/sec 3.9 mmHg MV A max toño: 300.4 cm/sec2 Ao max PG: LV V1 max: 55.1 cm/sec MV dec time: 5.8 mmHg 98.4 cm/sec MV E/A: 1.5 0.28 sec PA V2 max: TR max toño: 89.9 cm/sec 238.1 cm/sec PA max PG: TR max P.7 mmHg 3.2 mmHg Left Ventricle The left ventricle is grossly normal size. There is borderline concentric left ventricular hypertrophy. The left ventricular ejection fraction is normal. Doppler measurements suggest pseudonormalized left ventricular relaxation, which is associated with grade II/IV or mild to moderate diastolic dysfunction. Wall motion cannot be accurately commented on, but no definite regional wall motion abnormalities noted. Right Ventricle The right ventricle is mildly dilated. The right ventricular systolic function is normal. Atria The right atrium is mildly dilated. The left atrium is mildly dilated. Interarterial septum not well visualized and not well dopplered. Cannot comment on ASD/PFO presence. Mitral Valve The mitral valve is grossly normal. There is no mitral valve stenosis. There is a trace amount of mitral regurgitation. Aortic Valve The aortic valve is grossly normal. There is no aortic valve stenosis. No aortic regurgitation is present. Tricuspid Valve The tricuspid valve is not well visualized, but is grossly normal. There is no tricuspid stenosis. There is a mild amount of tricuspid regurgitation. There is mild pulmonary hypertension by echo. Right ventricular systolic pressure is estimated to be elevated at 30-40mmHg. Pulmonic Valve The pulmonic valve is not well visualized. Great Vessels The aortic root is not well visualized but is probably normal size. The inferior vena cava was not well visualized. Effusions There is no pericardial effusion. : HARI CAI > Josh Newman
== END 2017-10-03 17:41 | disposition home or self-care (01) | DRG 439 ==
LOC: ER 21:00 → EH 10-02 02:58 → 5 10-02 14:05
PROVIDERS: ADMIT Internal Medicine Geriatric Medicine; ATTEND Internal Medicine Geriatric Medicine
PROC: 3E0F73Z Introduction of Anti-inflammatory into Respiratory Tract, Via Natural or Artificial Opening (ICD-10-PCS; principal; 2017-10-02)
DX: K85.20 Alcohol induced acute pancreatitis without necrosis or infection (principal); E87.1 Hypo-osmolality and hyponatremia; I69.354 Hemiplegia and hemiparesis following cerebral infarction affecting left non-dominant side; E86.0 Dehydration; I95.9 Hypotension, unspecified; K76.0 Fatty (change of) liver, not elsewhere classified; I25.10 Atherosclerotic heart disease of native coronary artery without angina pectoris; E87.6 Hypokalemia; I50.9 Heart failure, unspecified; I11.0 Hypertensive heart disease with heart failure; M79.7 Fibromyalgia; E78.00 Pure hypercholesterolemia, unspecified; R94.5 Abnormal results of liver function studies; I25.2 Old myocardial infarction; Z79.82 Long term (current) use of aspirin; Z79.899 Other long term (current) drug therapy; Z88.8 Allergy status to other drugs, medicaments and biological substances; Z72.89 Other problems related to lifestyle; Z95.5 Presence of coronary angioplasty implant and graft; Z91.14 Patient's other noncompliance with medication regimen; Z90.49 Acquired absence of other specified parts of digestive tract; Z87.891 Personal history of nicotine dependence; Z80.3 Family history of malignant neoplasm of breast; Z80.6 Family history of leukemia; Z80.0 Family history of malignant neoplasm of digestive organs; Z83.3 Family history of diabetes mellitus
CPT/HCPCS: 36415; 70450; 71045; 71275; 74174; 76705; 80048; 80053; 80061; 80076; 80307; 81001; 82140; 82550; 82553; 82607; 82803; 83690; 84443; 84484; 85025; 85027; 93005; 93010; 93306; 93976; 96360; 99285; J1170; J1644; J2060; J7030

== ENCOUNTER 2019-11-16 18:09 | Emergency (ER) | payer BC, OTHER ==
[2019-11-16] MEDS ORDERED: ONDANSETRON HCL INJ/PF 4 MG/2 ML SDV IV ONE (18:28)
[2019-11-16] MEDS ORDERED: MORPHINE SULFATE 10 MG/ML INJ IV ONE ×2 (18:29→20:46)
--- NOTE | 2019-11-16 18:33 | ER Document Report ---
ED General <NEIL ROTHMAN IV - Last Filed: 11/16/19 22:46> - General Mode of Arrival: Ambulatory Information source: Patient TRAVEL OUTSIDE OF THE [place] IN LAST 30 DAYS: No <GIA VERDUGO - Last Filed: 11/18/19 03:14> - General Chief Complaint: Heat Exposure Stated Complaint: HEAT EXPOSURE/HEART PROBLEM Time Seen by Provider: 11/16/19 18:25 Primary Care Provider: ALEJANDRO HOLLAND MD [Primary Care Provider] - 11/17/19 Notes: 64-year-old man presents to the emergency department with a history of severe pain in his arms bilaterally and pain that radiates between his shoulder blades. He apparently was lifting a 50 pound bag of feed, developed a severe pain afterwards. He states that his symptoms improved and then returned approximately 20 minutes later. He has a history of CAD with NE x2 in the past. He also has had stent placements, left main disease. States he has had a stress test 6 months ago which was normal. Currently he is having severe pain in his upper back and bilateral arms. He is diaphoretic, short of breath and having some shaking uncontrollably. (GIA VERDUGO) - Related Data Allergies/Adverse Reactions: lisinopril Adverse Reaction (Verified 11/16/19 18:48) Syncope Past Medical History - General Information source: Patient - Social History Smoking Status: Unknown if Ever Smoked Family History: Reviewed & Not Pertinent - Past Medical History Cardiac Medical History: Reports: Hx Congestive Heart Failure, Hx Coronary Artery Disease - x1 stent in 2007. last cardiac cath was done in 2010 per ., Hx Heart Attack - x3, Hx Hypercholesterolemia, Hx Hypertension Neurological Medical History: Reports: Hx Cerebrovascular Accident Renal/ Medical History: Reports: Hx Kidney Stones. Denies: Hx Peritoneal Dialysis Musculoskeletal Medical History: Reports Hx Fibromyalgia Past Surgical History: Reports: Hx Cardiac Catheterization - stent placed, Hx Cholecystectomy - Immunizations Hx Diphtheria, Pertussis, Tetanus Vaccination: No <GIA VERDUGO - Last Filed: 11/18/19 03:14> Review of Systems <GIA VERDUGO - Last Filed: 11/18/19 03:14> - Review of Systems Notes: Constitutional: + Pain HENT: Negative for sore throat. Eyes: Negative for visual changes. Cardiovascular: + Diaphoresis, negative for chest pain. Respiratory: + Shortness of breath. Gastrointestinal: Negative for abdominal pain, vomiting or diarrhea. Genitourinary: Negative for dysuria. Musculoskeletal: + Upper back pain, + left shoulder pain. Skin: Negative for rash. Neurological: Negative for headaches, weakness or numbness. 10 point ROS negative except as marked above and in HPI. (GIA VERDUGO) Physical Exam <GIA VERDUGO - Last Filed: 11/18/19 03:14> - Vital signs Vitals: Temp 98.5 F 11/16/19 18:10 - Notes Notes: PHYSICAL EXAMINATION: Physical Exam: General: Well-nourished well-developed 64-year-old man in acute distress secondary to pain in his upper back left arm HEENT: NC/AT, pupils equal round and reactive to light, MM moist,nares clear, oropharynx clear, airway patent Neck: supple, no adenopathy, no masses. Good range of motion Lungs: clear, no wheezing, no rales no rhonchi CVS: Regular rate and rhythm no murmur gallop or rub + diaphoresis Abdomen: Soft, active, nontender, no masses, no hepatosplenomegaly Ext: No edema, clubbing or cyanosis. Neuro: Alert and responsive, moving all 4 extremities on command, cranial nerves intact, no focal findings Skin: Intact no open lesions, no rash PSYCH: Normal mood, normal affect. (GIA VERDUGO) Course - Laboratory Result Diagrams: 11/16/19 18:21 11/16/19 18:21 - Diagnostic Test Radiology reviewed: Reports reviewed <NIEL ROTHMAN IV - Last Filed: 11/16/19 22:46> - Laboratory Result Diagrams: 11/16/19 18:21 11/16/19 18:21 <GIA VERDUGO - Last Filed: 11/18/19 03:14> - Re-evaluation Re-evalutation: 11/16/19 22:46 Results of ED MSE discussed with patient. Second troponin level and CT of thoracic spine discussed with patient. All questions were answered prior to discharge. Emergency signs and symptoms, reasons to return to the emergency department discussed with patient. (NEIL ROTHMAN IV) 11/16/19 18:42 Differential diagnosis Electrolyte imbalance, acute coronary syndrome, compression fracture thoracic spine, dehydration (GIA VERDUGO) - Vital Signs Vital signs: Temp Pulse Resp BP Pulse Ox 98.5 F 14 149/94 H 97 11/16/19 18:18 11/16/19 20:01 11/16/19 20:01 11/16/19 22:00 - Laboratory Laboratory results interpreted by me: 11/16/19 11/16/19 18:21 18:21 MCV 104 H MCH 35.9 H AST 118 H ALT 102 H Creatine Kinase 190 H Total Protein 8.9 H Albumin 5.2 H Discharge <NEIL ROTHMAN IV - Last Filed: 11/16/19 22:46> <LUCINAGIA RAMOS - Last Filed: 11/18/19 03:14> - Discharge Clinical Impression: Musculoskeletal strain, Upper back pain, Diaphoresis, History of coronary artery disease Condition: Good Disposition: HOME, SELF-CARE Additional Instructions: Return to the Emergency Department without delay if any worse. HOME CARE INSTRUCTIONS & INFORMATION: Thank you for choosing us for your medical needs. We hope you're satisfied with the care you received. After you leave, you must properly care for your problem and, at the same time, observe its progress. Any condition can change. Some illnesses can change rapidly over hours or days. If your condition worsens, return to the Emergency Department or see your physician promptly. ABOUT YOUR X-RAYS AND EKG'S: If you had an EKG or X-rays taken, they have been read by the Emergency Physician. The X-rays and EKG's will also be read by a Radiologist or Flute Grinder within 24 hours. If discrepancies are noted, you will be notified by telephone. Please be certain the ED has a correct telephone number & address where you can be reached. Also, realize that some fractures or abnormalities do not show up on initial X-rays. If your symptoms continue, see your physician. ABOUT YOUR LABORATORY TEST: If you had laboratory tests, the results have been reviewed by the Emergency Physician. Some test results (for example cultures) may not be available for several days. You will be contacted if any test result shows you need additional treatment. Please be certain the ED has a correct telephone number and address where you can be reached. ABOUT YOUR MEDICATIONS: You will receive instructions on how to take your medicine on the prescription label you receive. Additional information may be provided by the Pharmacy. If you have questions afterwards, call the ED for clarification or further instructions. Some prescribed medications may cause drowsiness. Do not perform tasks such as driving a car or operating machinery without consulting your Pharmacist. If you feel you need a refill of pain medi cation, your condition will need re-evaluation. Please do not call for a refill of any medication. ABOUT YOUR SIGNATURE: Signature of this document acknowledges to followin. Understanding that you received emergency treatment and that you may be released before al medical problems are known or treated. Please be certain the ED has a correct phone number & address where you can be reached. 2. Acknowledgement that you will arrange for follow-up care as recommended. 3. Authorization for the Emergency Physician to provide information to your follow-up Physician in order to maximize your care. AT ANY TIME, IF YOUR SYMPTOMS CHANGE SIGNIFICANTLY OR WORSEN OR YOU DEVELOP NEW SYMPTOMS, RETURN TO THE EMERGENCY DEPARTMENT IMMEDIATELY FOR RE-EVALUATION. OUR GOAL IS TO PROVIDE EXCELLENT MEDICAL CARE! WE HOPE THAT WE HAVE MET YOUR EXPECTATIONS DURING YOUR EMERGENCY DEPARTMENT VISIT AND THAT YOU FEEL YOU HAVE RECEIVED EXCELLENT CARE! Muscle Strain You have strained a muscle -- torn the fibers within the muscle. This often occurs with strenuous exertion, or during an injury that suddenly stretches the muscle. The seriousness of a strain varies. Some strains heal within days, others cause problems for months. X-rays cannot show a muscle strain. X-rays are taken only if symptoms suggest that a fracture could be present. The usual treatment of a muscle strain is rest and ice packs. Sometimes, a sling, splint, or crutches may be necessary to rest the muscle. The muscle can be used again once pain subsides. Severe strains require a special exercise and stretching program to prevent permanent stiffness and disability. Your doctor will advise you if this will be necessary. Call the doctor immediately if pain or swelling becomes severe, or if numbness or discoloration develop. Prescriptions: Hydrocodone/Acetaminophen [[place] 5-325 mg Tablet] 1 tab PO Q6HP PRN #15 tablet PRN Reason: Cyclobenzaprine HCl [Flexeril 10 mg Tablet] 10 mg PO TIDP PRN #21 tab PRN Reason: Muscle Spasms Referrals: ALEJANDRO HOLLAND MD [Primary Care Provider] - 11/17/19
[2019-11-16 18:36] LABS: ABSOLUTE BASOPHILS # (AUTO) 0.1 10^3/uL (0.0-0.2); ABSOLUTE LYMPHOCYTES (AUTO) 3.2 10^3/uL (0.5-4.7); ABSOLUTE MONOCYTES (AUTO) 0.9 10^3/uL (0.1-1.4); ABSOLUTE NEUT (AUTO) 5.3 10^3/uL (1.7-8.2); BASOPHILS % (AUTO) 1.3 % (0-2); EOSINOPHILS % (AUTO) 0.5 % (0-6); HEMATOCRIT 48.2 % (37.9-51.0); HEMOGLOBIN 16.7 g/dL (13.5-17.0); LYMPHOCYTES % (AUTO) 33.4 % (13-45); MEAN CORPUSCULAR HEMOGLOBIN 35.9 pg (27.0-33.4); MEAN CORPUSCULAR HGB CONC 34.6 g/dL (32.0-36.0); MEAN CORPUSCULAR VOLUME 104 fl (80-97); MONOCYTES % (AUTO) 9.1 % (3-13); PLATELET COUNT 220 10^3/uL (150-450); RED BLOOD COUNT 4.65 10^6/uL (4.35-5.55); RED CELL DISTRIBUTION WIDTH 13.5 % (11.5-14.0); SEGMENTED NEUTROPHILS % (AUTO) 55.7 % (42-78); TOTAL CELLS COUNTED % (AUTO) 100 %; WHITE BLOOD COUNT 9.5 10^3/uL (4.0-10.5)
[2019-11-16 18:54] LABS: ALBUMIN 5.2 g/dL (3.5-5.0); ALKALINE PHOSPHATASE 101 U/L (38-126); ANION GAP 10 (5-19); ASPARTATE AMINO TRANSFERASE 118 U/L (17-59); BILIRUBIN,DIRECT 0.2 mg/dL (0.0-0.4); BILIRUBIN,TOTAL 0.8 mg/dL (0.2-1.3); BLOOD UREA NITROGEN 14 mg/dL (7-20); CARBON DIOXIDE 23 mmol/L (22-30); CHLORIDE 105 mmol/L (98-107); CREATINE KINASE 190 U/L (55-170); GLUCOSE 96 mg/dL (75-110); TOTAL PROTEIN 8.9 g/dL (6.3-8.2)
--- NOTE | 2019-11-16 19:03 | EKG REPORT ---
SEVERITY:- ABNORMAL ECG - SINUS RHYTHM BORDERLINE LEFT AXIS DEVIATION BORDERLINE T ABNORMALITIES, INFERIOR LEADS : Confirmed by: Josh Newman 16-Nov-2019 19:02:16
[2019-11-16 19:04] LABS: CREATINE KINASE MB 1.72 ng/mL (<4.55)
[2019-11-16 19:06] LABS: TROPONIN I < 0.012 ng/mL
--- NOTE | 2019-11-16 19:31 | RADIOLOGY REPORT (SQ) ---
EXAM DESCRIPTION: CHEST SINGLE VIEW IMAGES COMPLETED DATE/TIME: 11/16/2019 7:14 pm REASON FOR STUDY: Chest pain COMPARISON: 01/05/2015 TECHNIQUE: Single frontal radiographic view of the chest acquired. NUMBER OF VIEWS: One view. LIMITATIONS: None. FINDINGS: LUNGS AND PLEURA: No pneumothorax. No consolidation or pleural effusion. MEDIASTINUM AND HILAR STRUCTURES: Stable. HEART AND VASCULAR STRUCTURES: Stable. BONES: No acute findings. HARDWARE: None in the chest. OTHER: No other significant finding. IMPRESSION: NO ACUTE FINDINGS. TECHNICAL DOCUMENTATION: JOB ID: [id number] [place]-72 2010 [employer]- All Rights Reserved Reading location - IP/workstation name: [email or web address]
[2019-11-16 19:47] LABS: APPEARANCE,URINE CLEAR; BILIRUBIN,URINE NEGATIVE (NEGATIVE); COLOR,URINE STRAW; GLUCOSE, URINE NEGATIVE (NEGATIVE); KETONES,URINE NEGATIVE (NEGATIVE); PROTEIN,URINE NEGATIVE (NEGATIVE); URINE SPECIFIC GRAVITY 1.006; UROBILINOGEN,URINE NEGATIVE mg/dL (<2.0)
--- NOTE | 2019-11-16 20:46 | RADIOLOGY REPORT (SQ) ---
EXAM DESCRIPTION: CT THORACIC SPINE WITHOUT IV CONTRAST COMPLETED DATE/TME: 11/16/2019 20:00 CLINICAL HISTORY: 64 years, Male, upper back pain COMPARISON: Prior CT chest dated 10/01/2017 TECHNIQUE: Noncontrast CT chest was acquired. Coronal and sagittal reformations were created. Images stored on PACS. All CT scanners at this facility use dose modulation, iterative reconstruction, and/or weight based dosing when appropriate to reduce radiation dose to as low as reasonably achievable (ALARA). [facility]: Dose Right [facility]: CareDose [facility]: Dose Right [facility]: Teradose 4D [facility]: Smart [employer] LIMITATIONS: None. FINDINGS: Mild upper zone predominant emphysematous changes are noted. Visualized lungs are otherwise clear. Thoracic vertebral body heights and alignments are maintained. No acute fracture or malalignment is appreciated. There is mild multilevel thoracic spondylosis, designated by intervertebral space narrowing and hypertrophic endplate spurring. No foraminal stenosis is noted at any level. Calcifications are noted about the descending thoracic aorta. Liver is diffusely low in attenuation relative to the spleen. IMPRESSION: No acute fracture or malalignment. Mild multilevel thoracic spondylosis. Hepatic steatosis. TECHNICAL DOCUMENTATION: Quality ID # [id number]: Final reports with documentation of one or more dose reduction techniques (e.g., Automated exposure control, adjustment of the mA and/or kV according to patient size, use of iterative reconstruction technique) copyright 2011 [employer]- All Rights Reserved
[2019-11-16 22:28] VITALS: BP 149/94
[2019-11-16] MEDS ORDERED: HYDROCODONE/ACETAMINOPHEN 5-325 MG (6 TAB/ER DISP) PO PRN (22:47)
== END 2019-11-16 23:23 | disposition home or self-care (01) ==
LOC: ER 18:09
DX: T14.8XXA Other injury of unspecified body region, initial encounter (principal); M79.602 Pain in left arm; M79.601 Pain in right arm; M54.9 Dorsalgia, unspecified; X50.0XXA Overexertion from strenuous movement or load, initial encounter; M25.512 Pain in left shoulder; M47.814 Spondylosis without myelopathy or radiculopathy, thoracic region; K76.0 Fatty (change of) liver, not elsewhere classified; I25.10 Atherosclerotic heart disease of native coronary artery without angina pectoris; I25.2 Old myocardial infarction; R61 Generalized hyperhidrosis; R06.02 Shortness of breath; I10 Essential (primary) hypertension; Z95.5 Presence of coronary angioplasty implant and graft
CPT/HCPCS: 93005; 96376; 99284; 96374; 96375; 36415; 82553; 82550; 85025; 80053; 81001; 84484; 71045; 72128; 93010; J2270; J2405